=== PATIENT | male | born 1995 ===

== ENCOUNTER → 2021-11-08 17:14 | Outpatient (CLI) | payer BC, SELFPAY ==
[2021-11-08 19:50] LABS: COVID19 -Nasal RAPID Negative (Negative)
== END ==
PROVIDERS: Visit Provider Nurse Practitioner Family
DX: Z20.822 Contact with and (suspected) exposure to COVID-19 (principal); J02.9 Acute pharyngitis, unspecified
CPT/HCPCS: 87070; 87635

== ENCOUNTER → 2025-02-23 13:54 | Outpatient (ROUT) | payer OTHER, SELFPAY ==
[2025-02-23 16:30] LABS: Urine N gonorrhoeae NOT DETECTED
[2025-02-23 16:32] LABS: Urine Chlamydia NOT DETECTED
[2025-02-23 18:44] LABS: HIV 1 & 2 Ab/Ag 4th Gen Combo NEGATIVE (NEGATIVE)
== END ==
PROVIDERS: Visit Provider Family Medicine
DX: Z11.3 Encounter for screening for infections with a predominantly sexual mode of transmission (principal)
CPT/HCPCS: 86592; 87389; 87491; 87591